=== PATIENT | male | born 1990 ===

== ENCOUNTER 2021-06-06 13:37 | Emergency (ER) | payer OTHER ==
[~2021-06-06] VITALS: Ht 160 cm; Wt 70.7 kg
== END 2021-06-06 15:46 | disposition home or self-care (01) ==
LOC: ER 13:37
DX: S61.216A Laceration without foreign body of right little finger without damage to nail, initial encounter (principal); Z23 Encounter for immunization; W26.0XXA Contact with knife, initial encounter; Y99.0 Civilian activity done for income or pay; Y92.9 Unspecified place or not applicable
CPT/HCPCS: 90714